=== PATIENT | male | born 1985 | race Caucasian/White ===

== ENCOUNTER 2018-06-24 14:34 | Inpatient (IN) | payer OTHER ==
[~2018-06-24] VITALS: Ht 175.3 cm; Wt 59.0 kg
[2018-06-24 14:47] VITALS: Ht 175.3 cm; Wt 59.0 kg
[2018-06-24 17:31] LABS: BASOPHIL % 0.3 % (0-2); PLATELET COUNT 254 x10^3mcL (130-400); RED CELL DISTRIBUTION WIDTH 12.9 % (11.5-14.5)
[2018-06-24 17:39] LABS: CARBON DIOXIDE 28.6 mmol/L (21-32); CHLORIDE SERUM 103 mmol/L (98-107); CREATININE SERUM 1.2 mg/dL (0.7-1.3); GFR1 > 60 mL/min; GLUCOSE SERUM 100 mg/dL (74-106); POTASSIUM SERUM 3.6 mmol/L (3.5-5.1); SODIUM SERUM 141 mmol/L (136-145)
[2018-06-24 17:44] LABS: ALBUMIN 4.2 g/dL (3.4-5.0); ALKALINE PHOSPHATASE 33 U/L (46-116); ALT/SGPT 8 U/L (16-63); AST/SGOT 15 U/L (15-37); LIPASE 74 IU/L (73-393); TOTAL PROTEIN, SERUM 7.3 g/dL (6.4-8.2)
[2018-06-24 22:21] VITALS: BP 121/76
[2018-06-25 05:37] VITALS: BP 98/52
[2018-06-25 06:32] LABS: CALCIUM 7.9 mg/dL (8.5-10.1); CARBON DIOXIDE 25.8 mmol/L (21-32); CHLORIDE SERUM 107 mmol/L (98-107); CREATININE SERUM 0.9 mg/dL (0.7-1.3); GFR1 > 60 mL/min; GLUCOSE SERUM 97 mg/dL (74-106); POTASSIUM SERUM 3.4 mmol/L (3.5-5.1); SODIUM SERUM 141 mmol/L (136-145)
[2018-06-25 08:00] VITALS: BP 105/61
[2018-06-25 08:09] LABS: UA SPECIFIC GRAVITY 1.015 (1.005-1.035); microscopic required? YES; urine erythrocyte NEGATIVE (NEGATIVE)
[2018-06-25 08:22] LABS: BASOPHIL % 0.6 % (0-2); PLATELET COUNT 224 x10^3mcL (130-400); RED CELL DISTRIBUTION WIDTH 13.3 % (11.5-14.5)
[2018-06-25 17:17] VITALS: BP 108/73
[2018-06-25 20:55] VITALS: BP 102/69
[2018-06-26 04:29] VITALS: BP 104/59
[2018-06-26 09:20] VITALS: BP 105/66
[2018-06-26 16:43] VITALS: BP 123/73
[2018-06-26 20:36] VITALS: BP 113/73
[2018-06-27 05:35] VITALS: BP 102/63
[2018-06-27 06:17] LABS: BASOPHIL % 0.4 % (0-2); PLATELET COUNT 178 x10^3mcL (130-400)
[2018-06-27 06:32] LABS: CALCIUM 7.9 mg/dL (8.5-10.1); CARBON DIOXIDE 26.7 mmol/L (21-32); CHLORIDE SERUM 106 mmol/L (98-107); CREATININE SERUM 0.8 mg/dL (0.7-1.3); GFR1 > 60 mL/min; GLUCOSE SERUM 107 mg/dL (74-106); POTASSIUM SERUM 3.8 mmol/L (3.5-5.1); SODIUM SERUM 139 mmol/L (136-145)
[2018-06-27 08:42] VITALS: BP 114/62
[2018-06-27 15:53] VITALS: BP 114/62
== END 2018-06-27 16:58 | disposition home or self-care (01) | DRG 331 ==
LOC: ED 14:34 → MU 20:45
PROVIDERS: Emergency Medicine; Surgery; ADMIT Internal Medicine Pulmonary Disease
PROC: 0DTA4ZZ Resection of Jejunum, Percutaneous Endoscopic Approach (ICD-10-PCS; principal; 2018-06-25 09:30)
DX: K56.1 Intussusception (principal); F17.210 Nicotine dependence, cigarettes, uncomplicated; Z80.0 Family history of malignant neoplasm of digestive organs; Z80.8 Family history of malignant neoplasm of other organs or systems
CPT/HCPCS: J0330; J0694; J1170; J1885; J2250; J2270; J2405; J2543; J3010; J3480; J3490; J7030; Q9967